=== PATIENT | female | born 1975 | race Hispanic/Latino ===

== ENCOUNTER → 2020-05-01 | Outpatient (CLI) | payer SELFPAY ==
[~2020-05-01] MED LIST: GADOBENATE DIMEGLUMINE 1 ML IV ONE; SODIUM CHLORIDE 0.9% 100 ML ONE
--- NOTE | 2020-05-01 12:44 | Diagnostic Imaging Report ---
TECHNIQUE: MRI of the abdomen WITHOUT and WITH intravenous contrast. INDICATION: 45-year-old woman with liver mass. COMPARISON: None. FINDINGS: LOWER THORAX: Unremarkable. LIVER: No cirrhosis or hepatic steatosis. 1.4 x 1.6 cm T2 hyperintense lesion in segment 6 is hypoenhancing on early postcontrast sequences, but appears to enhance on delayed postcontrast sequence. BILIARY: Gallbladder is unremarkable. No biliary ductal dilatation or filling defect. SPLEEN: No splenomegaly. PANCREAS: No focal masses or ductal dilatation. ADRENALS: No adrenal nodules. KIDNEYS/URETERS: No hydronephrosis or solid mass lesions. Subcentimeter left renal cysts. PERITONEUM/RETROPERITONEUM: No free fluid. LYMPH NODES: No lymphadenopathy. VESSELS: Unremarkable. GI TRACT: No distention or wall thickening. BONES AND SOFT TISSUES: Unremarkable. IMPRESSION: Hepatic lesion in segment 6, most consistent with a hemangioma Signed by: Daisy Bridges MD on 05/01/2020 12:41 PM
== END ==
LOC: MRI 08:03
PROVIDERS: ATTEND Internal Medicine Gastroenterology
DX: R16.0 Hepatomegaly, not elsewhere classified (principal)
CPT/HCPCS: 74183; 81025; A9577; J7050